=== PATIENT | female | born 1995 | race Caucasian/White ===

== ENCOUNTER 2020-06-23 19:49 | Emergency (ER) | payer OTHER ==
[~2020-06-23] VITALS: Ht 152.4 cm; Wt 57.2 kg
[~2020-06-23 19:49] MED LIST: FERROUS SU325 ( 65 ) PO; MACROBID 100 M100 MG PO; PRENATAL + DHA1 EAC1 PO
[2020-06-23] MEDS ORDERED: KETO10TA2 PO (22:41)
== END 2020-06-23 22:50 | disposition home or self-care (01) ==
LOC: ER 19:49
DX: N83.291 Other ovarian cyst, right side (principal); R10.31 Right lower quadrant pain

== ENCOUNTER 2022-08-30 21:49 | Emergency (ER) | payer OTHER ==
[~2022-08-30] VITALS: Ht 144.8 cm; Wt 51.3 kg
[~2022-08-30 21:49] MED LIST changes: +KETO10TA2 PO
[2022-08-31] MEDS ORDERED: ZYNCOF 20-400120 ML PO (05:38)
[2022-08-31] MEDS ORDERED: ZYRTEC10 M3 PO (05:38)
== END 2022-08-31 05:49 ==
LOC: ER 21:49
DX: O20.8 Other hemorrhage in early pregnancy (principal); Z3A.11 11 weeks gestation of pregnancy; B34.9 Viral infection, unspecified; R53.81 Other malaise; R50.9 Fever, unspecified; Z20.822 Contact with and (suspected) exposure to COVID-19

== ENCOUNTER 2022-11-17 17:09 | Emergency (ER) | payer OTHER ==
[~2022-11-17] VITALS: Ht 152.4 cm; Wt 53.5 kg
[~2022-11-17 17:09] MED LIST changes: +ZYNCOF 20-400120 ML PO; +ZYRTEC10 M3 PO
[2022-11-17] MEDS ORDERED: PRENATAL + DHA1 EAC1 (17:31)
== END 2022-11-17 18:53 | disposition home or self-care (01) ==
LOC: ER 17:09
DX: B35.9 Dermatophytosis, unspecified (principal)

== ENCOUNTER 2023-02-25 05:25 | Inpatient (IN) | payer OTHER ==
[~2023-02-25] VITALS: Ht 152.4 cm; Wt 62.6 kg
[~2023-02-25 05:25] MED LIST changes: +PRENATAL + DHA1 EAC1
[2023-02-25 07:54] LABS: URINE APPEARANCE Cloudy; URINE BILIRRUBIN Negative (NEGATIVE); URINE BLOOD Negative; URINE COLOR Yellow; URINE GLUCOSE Negative (NEGATIVE); URINE LEUKOCYTE Large; URINE NITRATE Negative; URINE PROTEIN Negative (NEGATIVE); URINE UROBILINOGEN 0.2 E.U./dl
[2023-02-25 07:58] LABS: URINE EPITHELIAL CELLS 63.5 uL (0.0-38.8); URINE RBC 2.5 uL (0.0-20.8); URINE WBC 94.9 uL (0.0-23.2)
[2023-02-25 07:59] LABS: HEMATOCRIT 37.7 % (36.0-45.00); HEMOGLOBIN 12.3 g/dL (12.0-15.00); MEAN CELL VOLUME 88.4 fL (80.00-100.00); MEAN CORPUSCULAR HEMOGLOBIN 28.9 pg (27.00-32.0); MEAN CORPUSCULAR HGB CONC 32.7 g/dl (32.0-36.0); PLATELET COUNT 225 K/uL (150-450); RED BLOOD COUNT 4.27 M/uL (4.00-6.00)
[2023-02-25 08:19] LABS: INR < 0.93; PARTIAL THROMBOPLASTIN TIME 27.2 SECONDS (22.0-34.0); PROTHROMBIN TIME 9.8 SECONDS (9.0-11.5)
[2023-02-25 08:32] LABS: ALBUMIN 2.8 gm/dL (3.4-5.0); BILIRUBIN TOTAL 0.26 mg/dL (0.3-1.2); CREATININE SERUM 0.54 mg/dL (0.55-1.02); GFR 136.47; GLOBULINA 3.6 G/DL (2.4-3.5); POTASSIUM 4.28 mEq/L (3.5-5.1); TOTAL PROTEIN 6.4 gm/dL (6.4-8.2)
[2023-02-25 08:37] LABS: URINE CRYSTALS FEW /HPF
[2023-02-26 07:33] LABS: ABG PH 7.393 (7.35-7.45); ABG PO2 32.3 mmHg (80-100); BASE EXCESS -4.2 mmol/l; BICARBONATE 19.7 mmol/l (23-25); SaO2 60.6 %; Tco2 20.7 mmol/l; o2 21 %
== END 2023-02-27 16:13 | disposition home or self-care (01) | DRG 805 ==
LOC: LDR 05:25 → OB/GYN 05:25 → EDSTATUS 10:34 → LDR 10:34 → CIR.AMB 10:34 → OB/GYN 22:16
PROVIDERS: ADMIT Specialist; ATTEND Specialist
PROC: 10E0XZZ Delivery of Products of Conception, External Approach (ICD-10-PCS; principal; 2023-02-25)
PROC: 3E033VJ Introduction of Other Hormone into Peripheral Vein, Percutaneous Approach (ICD-10-PCS; 2023-02-25)
PROC: 3E0P7VZ Introduction of Hormone into Female Reproductive, Via Natural or Artificial Opening (ICD-10-PCS; 2023-02-25)
PROC: 4A1HXCZ Monitoring of Products of Conception, Cardiac Rate, External Approach (ICD-10-PCS; 2023-02-25)
DX: O36.5930 Maternal care for other known or suspected poor fetal growth, third trimester, not applicable or unspecified (principal); O60.14X0 Preterm labor third trimester with preterm delivery third trimester, not applicable or unspecified; Z37.0 Single live birth; O99.824 Streptococcus B carrier state complicating childbirth; Z3A.36 36 weeks gestation of pregnancy; Z20.822 Contact with and (suspected) exposure to COVID-19